=== PATIENT | male | born 1990 | race African-American/Black ===

== ENCOUNTER 2018-03-07 14:24 | Emergency (ER) | payer MEDICAID ==
[~2018-03-07] VITALS: Ht 172.7 cm; Wt 69.9 kg
[2018-03-07] MEDS ORDERED: KETOROLAC TROMETHAMINE 30 MG INJ IM ONE (15:00)
[2018-03-07] MEDS ORDERED: KETOROLAC TROMETHAMINE 30 MG INJ ONE (15:01)
--- NOTE | 2018-03-07 15:44 | NUR ---
Patient discharged to home in stable conditon. Written and verbal after care instructions given. Patient verbalizes understanding of instructions.
== END 2018-03-07 15:45 | disposition home or self-care (01) ==
LOC: ER 15:04
DX: R29.2 Abnormal reflex (principal); M25.561 Pain in right knee; F17.210 Nicotine dependence, cigarettes, uncomplicated
CPT/HCPCS: 29505; 73564; 96372; 99284; A4663; J1885

== ENCOUNTER 2018-05-02 11:31 | Emergency (ER) | payer MEDICAID ==
[~2018-05-02] VITALS: Ht 172.7 cm; Wt 72.6 kg
[2018-05-02] MEDS ORDERED: HYDROCODONE/APAP 5-325MG TABLET PO ONE (13:15)
--- NOTE | 2018-05-02 13:15 | NUR ---
PT IS IN ROOM #2A. DR CROWLEY EVALUATED THE PT.
[2018-05-02] MEDS ORDERED: HYDROCODONE/APAP 5-325MG TABLET ONE (13:19)
--- NOTE | 2018-05-02 13:44 | NUR ---
NAYAN GALLEGOS. DR CROWLEY NOTIFIED.
== END 2018-05-02 13:48 | disposition left against medical advice (07) ==
LOC: ER 11:31
DX: S02.2XXA Fracture of nasal bones, initial encounter for closed fracture (principal); F17.200 Nicotine dependence, unspecified, uncomplicated; W51.XXXA Accidental striking against or bumped into by another person, initial encounter; Y93.89 Activity, other specified; Y92.89 Other specified places as the place of occurrence of the external cause; Y99.8 Other external cause status
CPT/HCPCS: A4663

== ENCOUNTER 2022-04-21 12:04 | Emergency (ER) | payer BC, MEDICAID ==
[~2022-04-21] VITALS: Ht 185.4 cm; Wt 81.6 kg
--- NOTE | 2022-04-21 13:06 | NUR ---
called from waiting room, no answer
--- NOTE | 2022-04-21 16:01 | NUR ---
called for x-ray, no answer
== END 2022-04-21 17:01 | disposition left against medical advice (07) ==
LOC: ER 13:01
DX: Z53.21 Procedure and treatment not carried out due to patient leaving prior to being seen by health care provider (principal)